=== PATIENT | female | born 1950 | race Caucasian/White ===

== ENCOUNTER 2020-02-16 06:18 | Day surgery (SDC) | payer MEDICAID, MEDICARE ==
[2020-02-15 15:59] LABS: COVID AG,FIA SOURCE NASOPHARYNGEAL
[~2020-02-16] VITALS: Ht 154.9 cm; Wt 72.7 kg
[~2020-02-16 06:18] MED LIST: SODIUM CHLORIDE 0.9% 1,000 ML IV ONE
[2020-02-16] MEDS ORDERED: LIDOCAINE 2% 30 ML JELLY TP ONE (06:19)
[2020-02-16] MEDS ORDERED: LIDOCAINE 4% 50 ML SOLUTION TP ONE (06:19)
[2020-02-16] MEDS ORDERED: ALBUTEROL SULFATE 2.5 MG/0.5 ML NEB SOLUTION NEB ONE (06:19)
[2020-02-16] MEDS ORDERED: BENZOCAINE 20% 50 MCG/SPRAY 57 GM TP ONE (06:19)
[2020-02-16] MEDS ORDERED: MIDAZOLAM HCL 2 MG/2 ML VIAL ONE (08:14)
[2020-02-16] MEDS ORDERED: FentaNYL CITRATE-PF 100 MCG/2 ML VIAL ONE (08:14)
[2020-02-16] MEDS ORDERED: MethylPREDNISolone SOD SUCC 125 MG/2 ML VIAL IVP ONE (09:15)
[2020-02-16] MEDS ORDERED: MethylPREDNISolone SOD SUCC 125 MG/2 ML VIAL ONE (09:31)
[2020-02-16] MEDS ORDERED: OXYGEN THERAPY IH SCH (20:00)
== END 2020-02-16 10:45 | disposition home or self-care (01) ==
LOC: SURGERY 06:18
PROVIDERS: ATTEND Internal Medicine Critical Care Medicine
DX: J38.4 Edema of larynx (principal); B37.0 Candidal stomatitis; F32.9 Major depressive disorder, single episode, unspecified; Z79.899 Other long term (current) drug therapy; Z87.891 Personal history of nicotine dependence; Z98.890 Other specified postprocedural states
CPT/HCPCS: 31623; 31624; 71045; 87015; 87070; 87077; 87101; 87186; 87205; 87206; 87220; 87426; 88108; 88312; J2250; J2930; J3010; J7613; Z7610